=== PATIENT | female | born 1955 | race Caucasian/White ===

== ENCOUNTER → 2023-11-24 | Outpatient (CLI) | payer MEDICARE ==
[2005-05-21 15:50] VITALS: BP 155/102; PULSE 87; TEMP 98.7
[~2023-11-24] MED LIST: CEPHALEXIN500 M1 PO; CLARITIN 1010 MG/TAB PO; CLEOCIN HCL300 MG PO; DOLOPHINE HCL5 MG PO; K-DUR 10 MEQ T10 MEQ PO; LEVAQUIN 750MG750 M1 PO; MACROBID 1100 MG/CAP PO; MOTRIN 200200 MG/TAB PO; NEURONTIN800 MG/TAB PO; PREDNISONE 5MG5 MG PO; PRILOSEC 20MG20 MG PO; PROTONIX 40MG T40 MG PO; SEROQUEL 2525 MG/TAB PO; SUDAFED 12 HOU120 MG PO; VALIUM 5MG T5 MG/TAB PO; VITAMIND3 5000 PO; VOLTAREN-XR100 MG PO; XANAX 1MG1 MG PO; ZANAFLEX 4MG TAB4 MG PO; ZANTAC 150MG T150 MG PO
== END ==
LOC: MC.RAD 14:10
DX: Z12.31 Encounter for screening mammogram for malignant neoplasm of breast (principal)

== ENCOUNTER 2023-11-30 13:00 | Outpatient (RCR) | payer MEDICARE ==
[2005-05-21 15:50] VITALS: BP 155/102; PULSE 87; TEMP 98.7
== END 2023-12-01 | disposition home or self-care (01) ==
LOC: WSPT
DX: M48.062 Spinal stenosis, lumbar region with neurogenic claudication (principal)

== ENCOUNTER 2023-12-30 13:30 | Outpatient (RCR) | payer MEDICARE | END 2024-01-01 | disposition home or self-care (01) | LOC: WSPT | DX: M48.062 Spinal stenosis, lumbar region with neurogenic claudication (principal) ==